=== PATIENT | female | born 1945 | race Caucasian/White ===

== ENCOUNTER → 2022-10-21 | Outpatient (CLI) | payer MEDICARE ==
--- NOTE | 2022-10-21 12:22 | DIREP ---
PROCEDURE:CHEST 2 VIEWS COMPARISON:None. INDICATIONS:R07.82 INTERCOSTAL PAIN FINDINGS: LUNGS/PLEURA:Mild basilar and peripheral interstitial prominence, in keeping with fibrosis. No focal consolidation is identified. No acute ground-glass opacities suspected, there are no prior studies comparison. No effusion or pneumothorax identified. VASCULATURE:Normal. Unremarkable pulmonary vasculature. CARDIAC:Normal. No cardiac silhouette abnormality or cardiomegaly. MEDIASTINUM:Normal. No visible mass or adenopathy. BONES:Normal. No fracture or visible bony lesion. OTHER:Negative. CONCLUSION:Interstitial prominence, likely representing mild fibrosis. Acute process is not identified. Given the underlying pattern, mild edema or atypical pneumonia not excluded. No prior studies are available comparison Dictated by: Cristo Shearer MD on 10/21/2022 at 12:18 PM
== END | disposition home or self-care (01) ==
LOC: RAD 11:53
PROVIDERS: ATTEND Nurse Practitioner Family
DX: R07.82 Intercostal pain (principal)
CPT/HCPCS: 71046